=== PATIENT | female | born 1990 ===

== ENCOUNTER 2018-02-12 02:24 | Emergency (ER) | payer SELFPAY ==
[2018-02-12] MEDS ORDERED: Sodium Chloride 0.9% 1,000 ML IV ONE (02:47)
[2018-02-12 02:58] LABS: BASO # 0.1 K/uL (0.0-0.2); BASO % 0.4 % (0.0-2.0); EOS # 0.3 K/uL (0.0-0.7); EOS % 1.1 % (0.0-4.0); HEMOGLOBIN 15.2 g/dL (11.0-16.0); LYMPH % 16.9 % (20.0-40.0); MEAN CELL VOLUME 92.6 fL (81.0-99.0); MEAN CORPUSCULAR HEMOGLOBIN 30.6 pg (27.0-31.0); MEAN PLATELET VOLUME 11.1 fL (7.2-11.7); MONO # 0.9 K/uL (0.0-0.8); MONO % 3.9 % (0.0-10.0); NEUT # 18.6 K/uL (1.8-7.0); NEUT % 77.7 % (50.0-75.0); PLATELET COUNT 216 K/uL (130-400); RBC 4.97 Mil/uL (3.80-5.20); RED CELL DISTRIBUTION WIDTH 12.5 % (11.5-14.5); WHITE BLOOD COUNT 23.9 K/uL (4.8-10.8)
--- NOTE | 2018-02-12 03:03 | C.PDOC ---
History Of Present Illness 27 year old female presents to the ED c/o suprapubic pain, bilateral leg pain and back pain that started today when she got her menses. Patient reports having similar pain in the past when her cycle usually occurs. Patient reports she usually takes a questionable antispasmodic pill from [facility], but patient now states not helping with pain. Patient is also c/o nausea as well. Patient denies fever, chills, vomit, diarrhea, back pain, injury, fall, trauma. Time Seen by Provider: 02/12/18 02:35 Chief Complaint (Nursing): Abdominal Pain History Per: Patient History/Exam Limitations: no limitations Onset/Duration Of Symptoms: Hrs Current Symptoms Are (Timing): Still Present Location Of Pain/Discomfort: Suprapubic Radiation Of Pain To:: Back, Leg Quality Of Discomfort: "Pain" Associated Symptoms: Nausea. denies: Vomiting, Diarrhea, Loss Of Appetite, Urinary Symptoms Alleviating Factors: None Recent travel outside of the [place]: No Additional History Per: Patient Abnormal Vaginal Bleeding: Yes Last Menstral Period: Present Past Medical History Reviewed: Historical Data, Nursing Documentation, Vital Signs Vital Signs: Last Vital Signs Temp 97.6 F 02/12/18 02:36 Pulse 88 02/12/18 02:36 Resp 20 02/12/18 02:36 BP 138/85 02/12/18 02:36 Pulse Ox 100 02/12/18 02:36 - Medical History PMH: No Chronic Diseases Surgical History: No Surg Hx Family History: States: Unknown Family Hx - Social History Hx Alcohol Use: No Hx Substance Use: No Review Of Systems Constitutional: Negative for: Fever, Chills Cardiovascular: Negative for: Chest Pain Respiratory: Negative for: Cough, Shortness of Breath Gastrointestinal: Positive for: Nausea, Abdominal Pain. Negative for: Vomiting, Diarrhea Genitourinary: Positive for: Vaginal Bleeding. Negative for: Dysuria, Hematuria, Vaginal Discharge Musculoskeletal: Negative for: Back Pain Skin: Negative for: Rash Physical Exam - Physical Exam Appears: Non-toxic, No Acute Distress Skin: Warm, Dry, Rash Head: Atraumatic, Normacephalic Eye(s): bilateral: Normal Inspection Neck: Normal ROM, Supple Chest: Symmetrical Cardiovascular: Rhythm Regular Respiratory: Normal Breath Sounds, No Rales, No Rhonchi, No Wheezing Gastrointestinal/Abdominal: Soft, Tenderness (mild suprapubic), No Guarding, No Rebound Pelvic: Other (deferred) Extremity: Normal ROM, No Tenderness, No Swelling Neurological/Psych: Oriented x3, Normal Speech, Normal Cognition Gait: Steady ED Course And Treatment - Laboratory Results Result Diagrams: 02/12/18 02:55 02/12/18 02:55 O2 Sat by Pulse Oximetry: 100 (ON RA) Pulse Ox Interpretation: Normal Progress Note: Plan: - Labs. - Reglan 10 mg IV. - IV fluids. - Toradol 30 mg IVP. - UA. Pt reports pain improvement, sleeping comfortably. UA indicates UTI- macrobid started and pt will be d/c on pain medications and PO abx . Strongly advised WATCHGUARD follwo up for management Reevaluation Time: 05:43 Reassessment Condition: Improved Disposition Counseled Patient/Family Regarding: Diagnosis, Need For Followup, Rx Given - Disposition Referrals: [facility] [Outside] Disposition: HOME/ ROUTINE Disposition Time: 05:44 Condition: STABLE Additional Instructions: Take medications as prescribed Follow up with PMD Return to ER if worse Prescriptions: Naproxen [Naprosyn] 1 tab PO BID PRN #25 tab PRN Reason: Pain Nitrofurantoin Macrocrystals [Macrobid] 1 cap PO BID #14 cap Instructions: Menstrual Cramps (DC), Urinary Tract Infection, Adult (DC) Forms: [facility] (Maltese) - Clinical Impression Clinical Impression: Menstrual cramps, UTI (urinary tract infection) - PA / TIRE WRAPPER / Resident Statement MD/DO has reviewed & agrees with the documentation as recorded. - Scribe Statement The provider has reviewed the documentation as recorded by the Scribe Ilir Dang All medical record entries made by the Vickiibisi were at my direction and personally dictated by me. I have reviewed the chart and agree that the record accurately reflects my personal performance of the history, physical exam, medical decision making, and the department course for this patient. I have also personally directed, reviewed, and agree with the discharge instructions and disposition.
[2018-02-12 03:09] LABS: ALB/GLOB RATIO 1.4 (1.0-2.1); ALBUMIN 4.8 g/dL (3.5-5.0); BLOOD UREA NITROGEN 15 mg/dL (7-17); CALCIUM 9.7 mg/dl (8.6-10.4); GFR NON-AFRICAN AMERICAN > 60
[2018-02-12 03:11] LABS: ALT/SGPT 17 U/L (9-52); AST/SGOT 30 U/L (14-36)
[2018-02-12] MEDS ORDERED: Tramadol 25 mg PO STA (03:35)
[2018-02-12 03:57] LABS: BANDS 2 % (0-2); EOSINOPHIL 1 % (0-4); LYMPHOCYTE 16 % (20-40); MONOCYTE 2 % (0-10); NEUTROPHIL 78 % (50-75); PLATELET ESTIMATE NORMAL (NORMAL); REACTIVE LYMPHOCYTES 1 % (0-0); TOTAL CELLS COUNTED 100
[2018-02-12 04:49] LABS: HCG,QUALITATIVE URINE NEGATIVE (NEGATIVE)
[2018-02-12 04:55] LABS: SQUAMOUS EPITHIAL 1 /hpf (0-5); URINE BACTERIA RARE (<OCC); URINE BILIRUBIN NEGATIVE (NEGATIVE); URINE BLOOD 3+ (NEGATIVE); URINE CLARITY Hazy (Clear); URINE COLOR Yellow (YELLOW); URINE GLUCOSE (UA) NORMAL (Normal); URINE LEUKOCYTE ESTERASE 3+ Leu/uL (Negative); URINE PROTEIN 2+ mg/dL (NEGATIVE); URINE UROBILINOGEN NORMAL mg/dL (0.2-1.0)
[2018-02-12 10:48] VITALS: BP 100/60; PULSE 87; RESP 20; TEMP 97.8; O2SAT 100
== END 2018-02-12 05:54 | disposition home or self-care (01) ==
LOC: C.ER 02:24
DX: N39.0 Urinary tract infection, site not specified (principal); N94.6 Dysmenorrhea, unspecified
CPT/HCPCS: 80053; 81001; 84703; 85025; 87086; 96361; 96374; 96375; 99284; J1885; J2765; J7030